=== PATIENT | male | born 1970 | race Caucasian/White ===

== ENCOUNTER 2021-02-17 11:04 | Outpatient (CLI) | payer BC, SELFPAY ==
--- NOTE | ~2021-02-17 | NM_ITS ---
EXAMINATION: NM hepatobiliary w pharm DATE: 02/17/2021 12:57 INDICATION: Unspecified abdominal pain. COMPARISON: None. TECHNIQUE: 4.3 mCi Tc-99m mebrofenin (Choletec) was administered intravenously. Scintigraphic images of the abdomen were obtained for one hour. Then, 2.4 mcg sincalide (Kinevac) IV was administered, an d imaging was continued for 30 minutes. FINDINGS: There is normal clearance of radiotracer from the blood pool. There is homogeneous tracer u ptake by the liver. Activity progresses to the bowel and gallbladder. Gallbladder ejection fraction (GBEF) was 77%. Note that most patients with gallbladder dysfunction have GBEF < 35%, which overlaps with the broad normal range of 10-90%. IMPRESSION: 1. Normal hepatobiliary scintigraphy. Reviewed, dictated and finalized at location A.
== END 2021-02-17 11:05 | disposition home or self-care (01) ==
LOC: ANHIMG 11:07
PROVIDERS: PCP Family Medicine; Visit Provider Family Medicine
DX: R10.9 Unspecified abdominal pain (principal)
CPT/HCPCS: 78227; A9537; J2805

== ENCOUNTER 2023-02-05 14:21 | Outpatient (CLI) | payer BC, SELFPAY ==
--- NOTE | ~2023-02-05 | XR_ITS ---
EXAM: XR knee RT 3V DATE: 02/05/2023 14:40 HISTORY: MEDIAL KNEE PAIN FOR 3 MONTHS . COMPARISON: None available. FINDINGS: Normal mineralization. No fracture or dislocation. No lytic or blastic lesion. Mild medial joint space narrowing. Mild tricompartmental osteophytosis. Small volume joint fluid. 13 mm focus of dystrophic calcification overlying the distal quadriceps muscles in the lateral view. No erosion or periosteal change. Soft tissues within normal limits. IMPRESSION: Mild tricompartmental right knee osteoarthritis. Reviewed, dictated and finalized at location K.
== END 2023-02-05 14:22 | disposition home or self-care (01) ==
PROVIDERS: PCP Family Medicine; Visit Provider Physician Assistant Medical
DX: M17.11 Unilateral primary osteoarthritis, right knee (principal)
CPT/HCPCS: 73562

== ENCOUNTER → 2023-09-03 07:04 | Outpatient (CLI) | payer BC, SELFPAY ==
--- NOTE | ~2023-09-03 | MR_ITS ---
MRI of the right knee Clinical history: Pain Technique: Coronal proton density and proton density-weighted images, sagittal proton-density and T2 fat-sat images, and axial proton-density fat-saturated images were acquired. Findings: Anterior and posterior cruciate ligaments are intact. Medial collateral ligament and the la teral collateral ligament complex are intact. Popliteus tendon is intact. No lateral meniscal tear evident. There is complex tearing of the posterior horn and body of the medi al meniscus. There is mild to moderate chondromalacia of the medial compartment. Lateral compartment articular car tilage is relatively well-preserved. Patellar articular cartilage is intact. There is extensive high- grade chondral malacia the central aspect of the femoral trochlea with subchondral cystic change. Extensor mechanism is intact. No significant joint effusion or Mcclain's cyst. Impression: Extensive complex tearing of the posterior horn and body of medial meniscus. 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 Mild to moderate chondromalacia of the medial compartment. Reviewed, dictated and finalized at location M. D [facility] Impression: Extensive complex tearing of the posterior horn and body of medial meniscus. 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 Mild to moderate chondromalacia of the medial compartm ent.
== END ==
PROVIDERS: PCP Orthopaedic Surgery; Visit Provider Orthopaedic Surgery
DX: M25.561 Pain in right knee (principal); S83.231A Complex tear of medial meniscus, current injury, right knee, initial encounter; X58.XXXA Exposure to other specified factors, initial encounter
CPT/HCPCS: 73721